=== PATIENT | female | born 1990 ===

== ENCOUNTER 2016-09-30 00:23 | Emergency (ER) | payer MEDICAID ==
[2016-09-30 00:47] VITALS: BP 133/61; PULSE 105; RESP 18; TEMP 98; O2SAT 100
--- NOTE | 2016-09-30 01:27 | ED PDOC ---
HPI: Dental Pain/Injury Time Seen by Provider: 09/30/16 00:51 Chief Complaint (Nursing): Dental Pain History Per: Patient Additional Complaint(s): Pt. states on she had a root canal performed on her L lower jaw. Reports that she has been taking Motrin 400mg with intermittent relief. Reports once medication wears off pain returns. Pt. states she has a f/u appointment with her dentist on Friday. Denies trauma, fever, numbness, tingling. Past Medical History Reviewed: Historical Data, Nursing Documentation, Vital Signs Vital Signs: Last Vital Signs Temp 98 F 09/30/16 00:42 Pulse 105 H 09/30/16 00:42 Resp 18 09/30/16 00:42 BP 133/61 09/30/16 00:42 Pulse Ox 100 09/30/16 00:42 - Family History Family History: States: No Known Family Hx - Home Medications Home Medications: Ambulatory Orders Medication Instructions Recorded Naproxen [Naprosyn] 500 mg PO BID PRN #30 tab 09/30/16 - Allergies Allergies/Adverse Reactions: Allergies Allergy/AdvReac Type Severity Reaction Status Date / Time No Known Allergies Allergy Verified 09/30/16 00:41 Review of Systems ROS Statement: Except As Marked, All Systems Reviewed And Found Negative Physical Exam - Physical Exam Appears: Positive for: Well, Non-toxic, No Acute Distress Skin: Positive for: Normal Color, Warm. Negative for: Rash Eye Exam: Positive for: Normal appearance ENT: Positive for: Other (dentition intact; no gingival swelling; no dental fx) - ECG O2 Sat by Pulse Oximetry: 100 - Progress ED Course And Treament: Toradol 15mg IM given. Disposition - Clinical Impression Clinical Impression: Toothache - Patient ED Disposition Is Patient to be Admitted: No - Disposition Disposition: Routine/Home Disposition Time: 01:27 Condition: STABLE Additional Instructions: Call your dentist or oral surgeon today for further evaluation. Prescriptions: Naproxen [Naprosyn] 500 mg PO BID PRN #30 tab PRN Reason: Pain Instructions: Toothache (ED)
== END 2016-09-30 02:25 | disposition home or self-care (01) ==
LOC: H.ER 00:23
DX: K08.89 Other specified disorders of teeth and supporting structures (principal); Z98.890 Other specified postprocedural states; T81.9XXA Unspecified complication of procedure, initial encounter

== ENCOUNTER 2017-05-08 18:40 | Emergency (ER) | payer MEDICAID ==
[2017-05-08 18:46] VITALS: BP 109/62; RESP 16; O2SAT 98
--- NOTE | 2017-05-08 20:17 | ED PDOC ---
HPI: General Adult Time Seen by Provider: 05/08/17 18:52 Chief Complaint (Nursing): Flu-like Symptoms Chief Complaint (Provider): Flu-like Symptoms History Per: Patient History/Exam Limitations: no limitations Onset/Duration Of Symptoms: Days (x3) Current Symptoms Are (Timing): Still Present Additional Complaint(s): 27 year old female presents to the ER with 3 days of cough, subjective fever, and bodyaches. Did not take any medications at home. No temperature taken at home. No vomiting or diarrhea. Upon arrival, temp is 102. PMD: [facility] Past Medical History Reviewed: Historical Data, Nursing Documentation, Vital Signs Vital Signs: Last Vital Signs Temp 100.3 F H 05/08/17 20:27 Pulse 96 H 05/08/17 20:27 Resp 16 05/08/17 18:41 BP 109/62 05/08/17 18:41 Pulse Ox 98 05/08/17 20:22 - Medical History PMH: No Chronic Diseases - Family History Family History: States: Unknown Family Hx - Social History Current smoker - smoking cessation education provided: Yes Alcohol: Social Drugs: Denies - Home Medications Home Medications: Ambulatory Orders Medication Instructions Recorded Naproxen [Naprosyn] 500 mg PO BID PRN #30 tab 09/30/16 Oseltamivir [Tamiflu] 75 mg PO BID #10 cap 05/08/17 - Allergies Allergies/Adverse Reactions: Allergies Allergy/AdvReac Type Severity Reaction Status Date / Time No Known Allergies Allergy Verified 05/08/17 18:41 Review of Systems ROS Statement: Except As Marked, All Systems Reviewed And Found Negative Constitutional: Positive for: Fever, Other (Bodyaches) ENT: Positive for: Nose Congestion Respiratory: Positive for: Cough. Negative for: Shortness of Breath Gastrointestinal: Negative for: Vomiting, Diarrhea Physical Exam - Reviewed Nursing Documentation Reviewed: Yes Vital Signs Reviewed: Yes - Physical Exam Appears: Positive for: Well, Non-toxic, No Acute Distress Head Exam: Positive for: ATRAUMATIC, NORMAL INSPECTION, NORMOCEPHALIC Skin: Positive for: Normal Color, Warm, Dry Eye Exam: Positive for: Normal appearance ENT: Positive for: Normal ENT Inspection. Negative for: Pharyngeal Erythema, Tonsillar Exudate Neck: Positive for: Normal Cardiovascular/Chest: Positive for: Regular Rate, Rhythm. Negative for: Murmur Respiratory: Positive for: Normal Breath Sounds. Negative for: Accessory Muscle Use, Respiratory Distress Neurologic/Psych: Positive for: Alert, Oriented - ECG O2 Sat by Pulse Oximetry: 98 (RA) Pulse Ox Interpretation: Normal Medical Decision Making Medical Decision Making: Clinical Impression: Flu-like illness Time: 19:18 Initial Plan: * Tylenol 650 mg PO * Motrin 600 mg PO * Chest x-ray CXR: No acute disease, read by me 20:18 Patient will be discharged home with rx for Tamiflu. Repeat vitals are stable on discharge. Counseling was provided and all questions were answered regarding diagnosis and need for follow up with PMD. There is agreement to discharge plan. Return if symptoms persist or worsen. Scribe Attestation: Documented by Leighann Goetz, acting as a scribe for Karolyn García PA-C Provider Scribe Attestation: All medical record entries made by the Scribe were at my direction and personally dictated by me. I have reviewed the chart and agree that the record accurately reflects my personal performance of the history, physical exam, medical decision making, and the department course for this patient. I have also personally directed, reviewed, and agree with the discharge instructions and disposition. Disposition - Clinical Impression Clinical Impression: Influenza - Patient ED Disposition Is Patient to be Admitted: No Counseled Patient/Family Regarding: Studies Performed, Diagnosis, Need For Followup, Rx Given - Disposition Disposition: Routine/Home Disposition Time: 20:18 Condition: STABLE Prescriptions: Oseltamivir [Tamiflu] 75 mg PO BID #10 cap Instructions: Flu, Adult (DC) Forms: [employer] (Nepali), [facility] ED School/Work Excuse - POA Present On Arrival: None
[2017-05-08 20:27] VITALS: PULSE 96; TEMP 100.3
== END 2017-05-08 20:48 | disposition home or self-care (01) ==
LOC: H.ER 18:40
DX: J11.1 Influenza due to unidentified influenza virus with other respiratory manifestations (principal)